=== PATIENT | male | born 1970 | race Caucasian/White ===

== ENCOUNTER 2018-09-07 10:46 | Emergency (ER) | payer OTHER ==
[2018-09-07 10:57] VITALS: BP 180/103
--- NOTE | 2018-09-07 11:08 | ER Document Report ---
ED General - General Chief Complaint: S/S of Possible Stroke Stated Complaint: POSSIBLE STROKE Time Seen by Provider: 09/07/18 11:03 Primary Care Provider: VLADIMIR PADGETT NP [Primary Care Provider] - Follow up as needed RAFITA JOE DO [ASSOCIATE] - Follow up in 1 week Notes: 48-year-old male to the emergency department for evaluation of possible stroke. Patient states that 2 days ago he woke up with the left side of his face and not working right. Water keeps falling out of his lips when he tries to eat or drink. Does have the inability to shut his left eye in the forehead appears weak to him as well. Denies any upper or lower extremity weakness or numbness. Otherwise he thinks that everything is normal with exception of the left side of his face. Patient is currently trying to lose weight and has lost a little bit of weight. Thinks that he has been high blood pressure but wants to try and lose weight before starting any medications. TRAVEL OUTSIDE OF THE [place] IN LAST 30 DAYS: No - HPI Onset: Yesterday Quality of pain: No pain Severity: Mild Pain Level: Denies Associated symptoms: None - Related Data Allergies/Adverse Reactions: No Known Allergies Allergy (Verified 09/07/18 10:48) Past Medical History - General Information source: Patient - Social History Smoking Status: Unknown if Ever Smoked Frequency of alcohol use: None Drug Abuse: None Lives with: Family Family History: Reviewed & Not Pertinent Patient has suicidal ideation: No Patient has homicidal ideation: No Renal/ Medical History: Denies: Hx Peritoneal Dialysis Review of Systems - Review of Systems Notes: Constitutional: denies: Chills, Diaphoresis, Fever, Malaise, Weakness EENT: denies: Eye discharge, Blurred vision, Tearing, Double vision, Nose congestion, Nose discharge, Throat swelling, Mouth pain. Left-sided facial weakness Cardiovascular: denies: Palpitations, Heart racing, Orthopnea, Dyspnea, Chest pain Respiratory: denies: Cough, Hurts to breathe, Wheezing, Shortness of breath Gastrointestinal: denies: Abdominal pain, Diarrhea, Nausea, Vomiting, Black stools, bright red blood in stool Genitourinary: denies: Burning, Dysuria, Discharge, Frequency, Flank pain, Hematuria Musculoskeletal: denies: Joint pain, Joint swelling, Muscle pain, Muscle stiffness, back pain Hematologic/Lymphatic: denies: Anemia, Easy bleeding, Easy bruising, Blood clots Neurological/Psychological: denies: Confusion, Dementia, Depression, Loss of consciousness. Left-sided facial weakness Skin: No lesions, no masses, no skin breakdown, no abscesses Physical Exam - Vital signs Vitals: Temp Pulse Resp BP Pulse Ox 98.1 F 84 20 180/103 H 96 09/07/18 10:54 09/07/18 10:54 09/07/18 10:54 09/07/18 10:54 09/07/18 10:54 Interpretation: Normal - General General appearance: Appears well, Alert - HEENT Head: Normocephalic, Atraumatic Eyes: Normal Pupils: PERRL Tympanic membrane: Normal Nasal: Normal Notes: There is weakness appreciated the left side of the face. Weakness appreciated on the left forehead as well. The eyes slightly injected but does not appear excessively abnormal. There is no lesion on the ear or nose or on the tympanic membrane. - Respiratory Respiratory status: No respiratory distress Chest status: Nontender Breath sounds: Normal Chest palpation: Normal - Cardiovascular Rhythm: Regular Heart sounds: Normal auscultation Murmur: No - Abdominal Inspection: Normal Distension: No distension Bowel sounds: Normal Tenderness: Nontender Organomegaly: No organomegaly - Back Back: Normal, Nontender - Extremities General upper extremity: Normal inspection, Nontender, Normal color, Normal ROM, Normal temperature General lower extremity: Normal inspection, Nontender, Normal color, Normal ROM, Normal temperature, Normal weight bearing. No: Josefa's sign - Neurological Neuro grossly intact: Yes Cognition: Normal Orientation: AAOx4 [place] Coma Scale Eye Opening: Spontaneous Rudi Coma Scale Verbal: Oriented [place] Coma Scale Motor: Obeys Commands Rudi Coma Scale Total: 15 Speech: Normal Motor strength normal: LUE, RUE, LLE, RLE Additional motor exam normals: Equal parole or probation officer, Other - There is weakness to the cranial nerve VII on the left side of the face which does not spare the forehead.. 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 Patient has no central finding. He has no sparing of the forehead and d efinitely has this left-sided facial weakness only. He has no pronator drift, peripheral weakness or other central findings. Patient's blood pressure was high but he is quite nervous being that he was concerned he was having a stroke. Of note patient was counseled on his blood pressure and the need to have his blood pressure rechecked. I will start him on acyclovir as well as steroids at this time. Will give follow-up information for ENT. Return for any worsening symptoms or concerns. 09/07/18 11:14 - Vital Signs Vital signs: Temp Pulse Resp BP Pulse Ox 98.1 F 84 20 180/103 H 96 09/07/18 10:54 09/07/18 10:54 09/07/18 10:54 09/07/18 10:54 09/07/18 10:54 Discharge - Discharge Clinical Impression: Campbell's palsy Hypertension Qualifiers: Hypertension type: unspecified Qualified Code(s): I10 - Essential (primary) hypertension Condition: Good Disposition: HOME, SELF-CARE Instructions: Acyclovir ([facility]), Campbell's Palsy ([facility]), High Blood Pressure ([facility]), Steroid Medication Additional Instructions: Please follow-up with ENT if your symptoms persist as they may have more to offer. In the event you develop any worsening symptoms concerns please return. It may be beneficial to tape the eye shut to keep the moisture in your eye from escaping as Campbell's palsy inhibits ability for your eye to be able to be closed. You May need to be seen by an bingo usher if your eye symptoms get worse. Prescriptions: Acyclovir [Acyclovir 400 mg Tablet] 800 mg PO 5XD 7 Days #70 tablet Carboxymethylcellulose Sodium [Refresh Tears] 15 ml OS Q4H 10 Days #1 drops Prednisone [Deltasone 20 mg Tablet] 3 tab PO DAILY 5 Days #15 tablet Referrals: VLADIMIR PADGETT NP [Primary Care Provider] - Follow up as needed RAFITA JOE DO [ASSOCIATE] - Follow up in 1 week
== END 2018-09-07 11:14 | disposition home or self-care (01) ==
LOC: ER 10:46
DX: G51.0 Bell's palsy (principal); I10 Essential (primary) hypertension
CPT/HCPCS: 99283